=== PATIENT | male | born 1955 | race African-American/Black ===

== ENCOUNTER 2019-09-12 06:43 | Emergency (ER) | payer OTHER ==
[~2019-09-12] VITALS: Ht 185.4 cm; Wt 136.1 kg
[2019-09-12] MEDS ORDERED: ALBU90OI INH ×2 (07:35→07:55)
[2019-09-12] MEDS ORDERED: PRED10 PO (07:55)
[2019-09-12] MEDS ORDERED: GUAIFEN-CODEINE10 ML PO (07:55)
== END 2019-09-12 08:04 | disposition home or self-care (01) ==
LOC: ER 06:43
DX: J45.901 Unspecified asthma with (acute) exacerbation (principal)
CPT/HCPCS: 94640; 99283-25; J7512

== ENCOUNTER 2020-03-01 09:45 | Emergency (ER) | payer OTHER ==
[~2020-03-01] VITALS: Ht 185.4 cm; Wt 142.9 kg
[~2020-03-01 09:45] MED LIST: ALBU90OI INH; GUAIFEN-CODEINE10 ML PO; PRED10 PO
[2020-03-01] MEDS ORDERED: BUDESONIDE-FO10.2 G2 (10:02)
[2020-03-01] MEDS ORDERED: PRED20 PO (10:02)
[2020-03-01 10:32] LABS: BASOPHILS ABSOLUTE AUTO 0.08 K/mm3 (0.00-0.23); BASOPHILS PERCENT AUTO 1 % (0-2); EOSINOPHILS PERCENT AUTO 1 % (0-6); Hematocrit 42.8 % (37.0-53.0); Hemoglobin 13.5 g/dL (13.5-17.5); IMMATURE GRAN ABSOLUTE AUTO 0.09 K/mm3 (0.00-0.10); IMMATURE GRAN PERCENT AUTO 1 % (0-1); LYMPHOCYTES ABSOLUTE AUTO 5.68 K/mm3 (0.84-5.20); LYMPHOCYTES PERCENT AUTO 55 % (21-46); MONOCYTES ABSOLUTE AUTO 0.58 K/mm3 (0.16-1.47); MONOCYTES PERCENT AUTO 6 % (4-13); Mean Corpuscular HGB 27.5 pg (26.0-34.0); Mean Corpuscular HGB Conc 31.5 g/dL (31.5-36.5); Mean Corpuscular Volume 87 fL (80-100); NEUTROPHILS ABSOLUTE AUTO 3.81 K/mm3 (1.96-9.15); NEUTROPHILS PERCENT AUTO 37 % (41-73); NRBC ABSOLUTE 0.02 K/mm3 (0.00-0.02); NRBC Auto 0.2 /100 WBC (0.0-0.2); RDW Coefficient Variation 13.6 % (11.7-14.2); RDW Standard Deviation 43.4 fL (35.1-46.3); Red Blood Cell Count 4.91 M/mm3 (4.30-5.90); White Blood Cell Count 10.34 K/mm3 (4.00-11.30)
[2020-03-01 11:02] LABS: Alanine Aminotransfer (ALT/SGP 37 U/L (12-78); Albumin/Globulin Ratio 1.1 (0.8-1.8); Alk Phos 92 U/L (50-136); Anion Gap 8 mmol/L (6-16); Aspartate Aminotrans (AST/SGOT 14 U/L (12-37); Bilirubin, Total 0.3 mg/dL (0.1-1.0); Blood Urea Nitrogen 21 mg/dL (8-24); Bun/Creatinine Ratio 19.1 (12.0-20.0); CO2, Blood 22 mmol/L (21-32); Calcium, Blood 9.1 mg/dL (8.5-10.1); Chloride, Blood 110 mmol/L (98-108); Globulin, Blood 3.8 g/dL (2.2-4.0); Glomerular Filtration Rate >60 (60-); Glucose, Blood 108 mg/dL (70-99); Potassium, Blood 3.6 mmol/L (3.5-5.5); Sodium, Blood 140 mmol/L (136-145); Total Protein, Blood 7.8 g/dL (6.4-8.2); Troponin I <0.015 ng/mL (0.000-0.040)
[2020-03-01 11:11] LABS: Mean Platelet Volume 9.1 fL (9.1-12.4); Platelet Count 232 K/mm3 (150-400)
[2020-03-01] MEDS ORDERED: Prednisone20 MG PO (11:55)
== END 2020-03-01 12:04 | disposition home or self-care (01) ==
LOC: ER 09:45
PROVIDERS: Physician Assistant
DX: J45.901 Unspecified asthma with (acute) exacerbation (principal); Z79.52 Long term (current) use of systemic steroids; Z79.899 Other long term (current) drug therapy
CPT/HCPCS: 71045; 80053; 84484; 85025; 93005; 93010; 94644; 99285-25

== ENCOUNTER 2020-06-18 06:08 | Emergency (ER) | payer OTHER ==
[~2020-06-18] VITALS: Ht 188 cm; Wt 122.5 kg
[~2020-06-18 06:08] MED LIST changes: +BUDESONIDE-FO10.2 G2; +PRED20 PO; +Prednisone20 MG PO
[2020-06-18 06:49] LABS: BASOPHILS ABSOLUTE AUTO 0.06 K/mm3 (0.00-0.23); BASOPHILS PERCENT AUTO 1 % (0-2); EOSINOPHILS ABSOLUTE AUTO 0.15 K/mm3 (0.00-0.68); EOSINOPHILS PERCENT AUTO 2 % (0-6); Hematocrit 37.6 % (37.0-53.0); Hemoglobin 12.1 g/dL (13.5-17.5); IMMATURE GRAN ABSOLUTE AUTO 0.03 K/mm3 (0.00-0.10); IMMATURE GRAN PERCENT AUTO 0 % (0-1); LYMPHOCYTES PERCENT AUTO 47 % (21-46); MONOCYTES ABSOLUTE AUTO 0.46 K/mm3 (0.16-1.47); MONOCYTES PERCENT AUTO 7 % (4-13); Mean Corpuscular HGB 27.6 pg (26.0-34.0); Mean Corpuscular HGB Conc 32.2 g/dL (31.5-36.5); Mean Corpuscular Volume 86 fL (80-100); Mean Platelet Volume 8.6 fL (9.1-12.4); NEUTROPHILS ABSOLUTE AUTO 2.89 K/mm3 (1.96-9.15); NEUTROPHILS PERCENT AUTO 43 % (41-73); Platelet Count 290 K/mm3 (150-400); RDW Coefficient Variation 14.1 % (11.7-14.2); RDW Standard Deviation 44.6 fL (35.1-46.3); Red Blood Cell Count 4.38 M/mm3 (4.30-5.90); White Blood Cell Count 6.79 K/mm3 (4.00-11.30)
[2020-06-18 07:09] LABS: Alanine Aminotransfer (ALT/SGP 32 U/L (12-78); Albumin, Blood 3.7 g/dL (3.4-5.0); Alk Phos 84 U/L (50-136); Anion Gap 7 mmol/L (6-16); Aspartate Aminotrans (AST/SGOT 19 U/L (12-37); Bilirubin, Total 0.2 mg/dL (0.1-1.0); Blood Urea Nitrogen 16 mg/dL (8-24); Bun/Creatinine Ratio 14.2 (12.0-20.0); CO2, Blood 23 mmol/L (21-32); Calcium, Blood 9.2 mg/dL (8.5-10.1); Chloride, Blood 114 mmol/L (98-108); Creatinine, Blood 1.13 mg/dL (0.60-1.20); Globulin, Blood 3.6 g/dL (2.2-4.0); Glomerular Filtration Rate >60 (60-); Glucose, Blood 94 mg/dL (70-99); Sodium, Blood 144 mmol/L (136-145); Total Protein, Blood 7.3 g/dL (6.4-8.2)
[2020-06-18] MEDS ORDERED: Prednisone20 MG PO (07:25)
== END 2020-06-18 08:35 | disposition home or self-care (01) ==
LOC: ER 06:08
PROVIDERS: Emergency Medicine
DX: R51.9 Headache, unspecified (principal); R25.2 Cramp and spasm; R20.0 Anesthesia of skin; L72.3 Sebaceous cyst; Z79.51 Long term (current) use of inhaled steroids
CPT/HCPCS: 36415; 70450; 80053; 85025; 99284-25

== ENCOUNTER 2021-01-25 02:34 | Observation (INO) | payer OTHER ==
[~2021-01-25] VITALS: Ht 185.4 cm; Wt 137.9 kg
[2021-01-25] MEDS ORDERED: HYDCOR10 (03:00)
[2021-01-25] MEDS ORDERED: EUTHYROX50 MCG (03:00)
[2021-01-25 03:02] LABS: BASOPHILS ABSOLUTE AUTO 0.04 K/mm3 (0.00-0.23); BASOPHILS PERCENT AUTO 1 % (0-2); EOSINOPHILS ABSOLUTE AUTO 0.15 K/mm3 (0.00-0.68); EOSINOPHILS PERCENT AUTO 2 % (0-6); Hematocrit 39.3 % (37.0-53.0); Hemoglobin 12.1 g/dL (13.5-17.5); IMMATURE GRAN ABSOLUTE AUTO 0.01 K/mm3 (0.00-0.10); IMMATURE GRAN PERCENT AUTO 0 % (0-1); LYMPHOCYTES ABSOLUTE AUTO 3.82 K/mm3 (0.84-5.20); LYMPHOCYTES PERCENT AUTO 52 % (21-46); MONOCYTES PERCENT AUTO 7 % (4-13); Mean Corpuscular HGB Conc 30.8 g/dL (31.5-36.5); Mean Corpuscular Volume 84 fL (80-100); Mean Platelet Volume 8.9 fL (9.1-12.4); NEUTROPHILS ABSOLUTE AUTO 2.77 K/mm3 (1.96-9.15); NEUTROPHILS PERCENT AUTO 38 % (41-73); Platelet Count 306 K/mm3 (150-400); RDW Coefficient Variation 13.9 % (11.7-14.2); RDW Standard Deviation 42.8 fL (35.1-46.3); Red Blood Cell Count 4.66 M/mm3 (4.30-5.90); White Blood Cell Count 7.29 K/mm3 (4.00-11.30)
[2021-01-25 03:23] LABS: Anion Gap 4 mmol/L (6-16); Blood Urea Nitrogen 17 mg/dL (8-24); Bun/Creatinine Ratio 16.5 (12.0-20.0); CO2, Blood 28 mmol/L (21-32); Calcium, Blood 8.8 mg/dL (8.5-10.1); Chloride, Blood 111 mmol/L (98-108); Creatinine, Blood 1.03 mg/dL (0.60-1.20); Glomerular Filtration Rate >60 (60-); Glucose, Blood 116 mg/dL (70-99); Magnesium, Blood 2.3 mg/dL (1.6-2.4); Potassium, Blood 3.6 mmol/L (3.5-5.5); Sodium, Blood 143 mmol/L (136-145); Troponin I 0.112 ng/mL (0.000-0.040)
[2021-01-25 04:50] LABS: International Normalized Ratio 0.93; Prothrombin Time Results 10.1 Sec (9.7-11.5)
--- NOTE | 2021-01-25 07:47 | NUR ---
ASSUMPTION OF CARE PT TX TO ICU FROM ER VIA GURNEY, PT ABLE TO STAND AND TRANSFER TO ICU BED, A&OX4. DENIES CP OR SOB AT THIS TIME. VSS, NSR ON THE SENIOR DB2 SYSTEMS PROGRAMMER. PT WITH ONE 20GA IV RAC ON ADMIT, SECOND IV ESTABLISHED IN LAC UPON ARRIVAL. HEPARIN BOLUS GIVEN, HEPARIN GTT INITIATED WITH CHAR RAMOS RN WITNESS. URINAL AT BEDSIDE, CALL LIGHT IN REACH. PT ADVISED TO NOTIFY NURSE UPON ANY RETURN IN CP OR SOB. NO COMPLAINTS AT THIS TIME. REPORT GIVEN TO ONCOMING NURSE.
--- NOTE | 2021-01-25 08:40 | NUR ---
ASSESSMENT- PT AWAKE, ALERT, COOPERATIVE, DENIES COMPLAINTS EXCEPT WOULD LIKE NEXT LAB TEST SO HE COULD GO HOME. EXPLAINED PLAN OF CARE. NO DISTRESS, LUNGS CLEAR, NSR. PIV X 2 INTACT. HEPARIN AT 13 UNITS/KG/HR INFUSING. NO N/V
--- NOTE | 2021-01-25 09:15 | NUR ---
PT RETURNED FROM CT SCAN-C/O TIGHTNESS IN TEST, STATES FEELS LIKE AN ASTHMA EPISODE AND STATES WAS ANXIOUS WITH SCAN. RESP TREATMENT GIVEN WITH RESOLUTION OF EPISODE. VSS. NO WHEEZES. TALKING ON PHONE NOW, NO DISTRESS, RESPIRATIONS UNLABORED.
[2021-01-25 11:32] LABS: Creatine Kinase MB 3.9 ng/mL (0.0-3.6); Creatine Kinase MB Index 2.8 (0.0-4.0)
--- NOTE | 2021-01-25 12:17 | NUR ---
PT DENIES COMPLAINTS. TROPONIN REPEATED-INCREASING. NO OTHER EPISODES OF DISCOMFORT AFTER THE CHEST TIGHTNESS AFTER CT. DR. PORTER HERE-UPDATED. CARDIOLOGY CONSULT-CALLED. ASSESSMENT UNCHANGED
--- NOTE | 2021-01-25 15:21 | NUR ---
RHYTHM STABLE, VISITING WITH FAMILY. REVIEWED PLAN OF CARE. REPORT TO ALLEN ATKINS
--- NOTE | 2021-01-25 19:54 | NUR ---
REPORT GIVEN TO MI ATKINS.
[2021-01-25 20:18] LABS: Creatine Kinase MB 3.4 ng/mL (0.0-3.6); Creatine Kinase MB Index 2.7 (0.0-4.0); Troponin I 0.284 ng/mL (0.000-0.040)
[2021-01-26 05:10] LABS: Hematocrit 32.2 % (37.0-53.0); Hemoglobin 10.4 g/dL (13.5-17.5); Mean Corpuscular HGB 26.3 pg (26.0-34.0); Mean Corpuscular HGB Conc 32.3 g/dL (31.5-36.5); Mean Corpuscular Volume 82 fL (80-100); Mean Platelet Volume 8.9 fL (9.1-12.4); Platelet Count 268 K/mm3 (150-400); RDW Coefficient Variation 13.9 % (11.7-14.2); RDW Standard Deviation 41.1 fL (35.1-46.3); Red Blood Cell Count 3.95 M/mm3 (4.30-5.90); White Blood Cell Count 9.95 K/mm3 (4.00-11.30)
[2021-01-26 05:29] LABS: Albumin, Blood 3.1 g/dL (3.4-5.0); Anion Gap 5 mmol/L (6-16); Blood Urea Nitrogen 18 mg/dL (8-24); Bun/Creatinine Ratio 19.4 (12.0-20.0); CHOL/HDL RATIO 4.6; CO2, Blood 26 mmol/L (21-32); Calcium, Blood 8.6 mg/dL (8.5-10.1); Chloride, Blood 111 mmol/L (98-108); Cholesterol 217 mg/dL (50-200); Creatinine, Blood 0.93 mg/dL (0.60-1.20); Glomerular Filtration Rate >60 (60-); Glucose, Blood 108 mg/dL (70-99); HDL Cholesterol 47 mg/dL (>39); LDL/HDL RATIO 3.3; Low Density Lipoprotein Chol 153 mg/dL (0-110); Phosphorus, Blood 3.8 mg/dL (2.5-4.9); Potassium, Blood 3.3 mmol/L (3.5-5.5); Sodium, Blood 142 mmol/L (136-145); Triglycerides 83 mg/dL (30-160); Very Low Density Lipoprot Chol 16 mg/dL (6-32)
--- NOTE | 2021-01-26 06:01 | NUR ---
SUMMARY NO ACUTE CHANGES NOTED THROUGH THE NIGHT. PT HAS BEEN AWAKE & ANXIOUS TO GO HO HOME. HE CONTINUES TO DENY CP/PRESSURE. VSS, ON RA. HEPARIN GTT INFUSING PER EMAR. PT IS TOLERATING PO INTAKE, VOIDING WNL. PT IS UP TO THE BEDSIDE CHAIR FREQUENTLY. HE C/O THE BED BEING UNCOMFORTABLE. WCTM AT THIS TIME, REPORT WILL BE GIVEN TO DAY RN
--- NOTE | 2021-01-26 07:15 | NUR ---
Assumed care of pt at 0700. Bedside report received from Pari ATKINS. Pt A&O x 4. Answers questions. Follows commands. Verbalizes needs. Pleasant and cooperative with care. Independent in room. Denies chest pain or shortness of breath. SpO2 90% or greater RA. Heparin drip per orders. Bed in lowest position. Call light in reach. Pt denies need at this time.
--- NOTE | 2021-01-26 10:37 | NUR ---
Dr Meade in to see patient. States that pt is okay to go home from his standpoint. Heparin drip stopped per his orders. Pt has scheduled a stress test in [place], where he receives most of his medical care. Stress test is scheduled for next week. Although pt lives in [place], he is happy about receiving his health care in [place], stating "I get paid to go to [place]", as his travel expenses are covered. Dr Ashton in to see pt. Pt states highly satisfied with plan of care to add statin, BP meds, prednisone taper, and follow up as he has scheduled. Pt states he has previously been noncompliant with medication and "learned my lesson". Pt to discharge later today.
[2021-01-26] MEDS ORDERED: Prednisone10 MG PO (13:30)
[2021-01-26] MEDS ORDERED: LEVSOD100 PO (13:31)
[2021-01-26] MEDS ORDERED: ASPI81CH PO (13:31)
[2021-01-26] MEDS ORDERED: OMEP20ER PO (13:32)
[2021-01-26] MEDS ORDERED: METO25ER PO (13:32)
[2021-01-26] MEDS ORDERED: ATOR20 PO (13:33)
[2021-01-26] MEDS ORDERED: SYMBICORT 80-10.2 GM INH (13:35)
--- NOTE | 2021-01-26 14:04 | NUR ---
Patient discharged from unit at 1400. Walked out with his spouse. Understands he needs to see PCP in three days. Medications faxed to [facility] [address]. Education given to spouse and . IV access discontinued.
== END 2021-01-26 14:05 | disposition home or self-care (01) ==
LOC: ER 02:34 → ICUE 02:35 → ICUW 02:35 → ICUE 05:44
PROVIDERS: Emergency Medicine; Internal Medicine; ADMIT Internal Medicine
DX: J45.901 Unspecified asthma with (acute) exacerbation (principal); J96.01 Acute respiratory failure with hypoxia; I10 Essential (primary) hypertension; E03.9 Hypothyroidism, unspecified; E66.9 Obesity, unspecified; E78.5 Hyperlipidemia, unspecified; F32.9 Major depressive disorder, single episode, unspecified; Z87.891 Personal history of nicotine dependence; Z79.899 Other long term (current) drug therapy; Z20.822 Contact with and (suspected) exposure to COVID-19
CPT/HCPCS: 36415; 71045; 71260; 80048; 80061; 80069; 82550; 82553; 83735; 83880; 84484; 85025; 85027; 85610; 85730; 93005; 93010; 93306; 94640; 94644; 96365; 96366; 96374; 96376; 99285-25; A9270; G0378; J1644; J7512; Q9967

== ENCOUNTER 2021-03-07 15:10 | Emergency (ER) | payer OTHER ==
[~2021-03-07 15:10] MED LIST changes: +ASPI81CH PO; +ATOR40TA PO; +EUTHYROX125 MCG PO; +EUTHYROX50 MCG; +HYDCOR10; +METO25ER PO; +OMEP20ER PO; +Prednisone10 MG PO; +SYMBICORT 160-4.6 GM INH
== END 2021-03-07 15:48 | disposition left against medical advice (07) ==
LOC: ER 15:10
DX: Z53.21 Procedure and treatment not carried out due to patient leaving prior to being seen by health care provider (principal)

== ENCOUNTER 2021-03-08 07:10 | Emergency (ER) | payer OTHER ==
[~2021-03-08] VITALS: Ht 185.4 cm; Wt 141.5 kg
[2021-03-08 07:54] LABS: BASOPHILS ABSOLUTE AUTO 0.04 K/mm3 (0.00-0.23); BASOPHILS PERCENT AUTO 1 % (0-2); EOSINOPHILS PERCENT AUTO 4 % (0-6); Hematocrit 38.8 % (37.0-53.0); Hemoglobin 12.3 g/dL (13.5-17.5); IMMATURE GRAN ABSOLUTE AUTO 0.01 K/mm3 (0.00-0.10); IMMATURE GRAN PERCENT AUTO 0 % (0-1); LYMPHOCYTES ABSOLUTE AUTO 2.45 K/mm3 (0.84-5.20); LYMPHOCYTES PERCENT AUTO 53 % (21-46); MONOCYTES ABSOLUTE AUTO 0.46 K/mm3 (0.16-1.47); MONOCYTES PERCENT AUTO 10 % (4-13); Mean Corpuscular HGB 25.4 pg (26.0-34.0); Mean Corpuscular HGB Conc 31.7 g/dL (31.5-36.5); Mean Corpuscular Volume 80 fL (80-100); Mean Platelet Volume 8.7 fL (9.1-12.4); NEUTROPHILS ABSOLUTE AUTO 1.49 K/mm3 (1.96-9.15); NEUTROPHILS PERCENT AUTO 32 % (41-73); Platelet Count 317 K/mm3 (150-400); RDW Coefficient Variation 14.3 % (11.7-14.2); RDW Standard Deviation 41.3 fL (35.1-46.3); Red Blood Cell Count 4.85 M/mm3 (4.30-5.90); White Blood Cell Count 4.65 K/mm3 (4.00-11.30)
[2021-03-08 08:20] LABS: Alanine Aminotransfer (ALT/SGP 27 U/L (12-78); Albumin, Blood 3.3 g/dL (3.4-5.0); Albumin/Globulin Ratio 0.8 (0.8-1.8); Alk Phos 120 U/L (50-136); Anion Gap 6 mmol/L (6-16); Aspartate Aminotrans (AST/SGOT 16 U/L (12-37); Bilirubin, Total 0.2 mg/dL (0.1-1.0); Blood Urea Nitrogen 16 mg/dL (8-24); Bun/Creatinine Ratio 14.7 (12.0-20.0); CO2, Blood 23 mmol/L (21-32); Calcium, Blood 9.1 mg/dL (8.5-10.1); Chloride, Blood 111 mmol/L (98-108); Creatinine, Blood 1.09 mg/dL (0.60-1.20); Globulin, Blood 4.2 g/dL (2.2-4.0); Glomerular Filtration Rate >60 (60-); Glucose, Blood 106 mg/dL (70-99); Potassium, Blood 4.1 mmol/L (3.5-5.5); Sodium, Blood 140 mmol/L (136-145); Total Protein, Blood 7.5 g/dL (6.4-8.2); Troponin I 0.193 ng/mL (0.000-0.040)
== END 2021-03-08 09:20 | disposition home or self-care (01) ==
LOC: ER 07:10
PROVIDERS: Emergency Medicine
DX: R79.89 Other specified abnormal findings of blood chemistry (principal); I10 Essential (primary) hypertension; E78.5 Hyperlipidemia, unspecified; Z87.891 Personal history of nicotine dependence
CPT/HCPCS: 36415; 71045; 80053; 84484; 85025; 93005; 93010; 99283-25

== ENCOUNTER 2021-03-17 09:57 | Inpatient (IN) | payer OTHER, BC ==
[~2021-03-17] VITALS: Ht 185.4 cm; Wt 146.6 kg
[2021-03-17 10:39] LABS: BASOPHILS ABSOLUTE AUTO 0.04 K/mm3 (0.00-0.23); BASOPHILS PERCENT AUTO 0 % (0-2); EOSINOPHILS ABSOLUTE AUTO 0.01 K/mm3 (0.00-0.68); EOSINOPHILS PERCENT AUTO 0 % (0-6); Hematocrit 37.5 % (37.0-53.0); IMMATURE GRAN ABSOLUTE AUTO 0.05 K/mm3 (0.00-0.10); IMMATURE GRAN PERCENT AUTO 1 % (0-1); LYMPHOCYTES PERCENT AUTO 22 % (21-46); MONOCYTES ABSOLUTE AUTO 0.43 K/mm3 (0.16-1.47); MONOCYTES PERCENT AUTO 5 % (4-13); Mean Corpuscular HGB 25.2 pg (26.0-34.0); Mean Corpuscular Volume 79 fL (80-100); Mean Platelet Volume 9.1 fL (9.1-12.4); NEUTROPHILS ABSOLUTE AUTO 6.83 K/mm3 (1.96-9.15); NEUTROPHILS PERCENT AUTO 72 % (41-73); Platelet Count 333 K/mm3 (150-400); RDW Coefficient Variation 14.6 % (11.7-14.2); Red Blood Cell Count 4.77 M/mm3 (4.30-5.90); White Blood Cell Count 9.46 K/mm3 (4.00-11.30)
[2021-03-17 11:06] LABS: Alanine Aminotransfer (ALT/SGP 42 U/L (12-78); Albumin, Blood 3.5 g/dL (3.4-5.0); Albumin/Globulin Ratio 0.9 (0.8-1.8); Alk Phos 117 U/L (50-136); Anion Gap 7 mmol/L (6-16); Aspartate Aminotrans (AST/SGOT 20 U/L (12-37); Bilirubin, Total 0.1 mg/dL (0.1-1.0); Blood Urea Nitrogen 25 mg/dL (8-24); Bun/Creatinine Ratio 25.4 (12.0-20.0); CO2, Blood 23 mmol/L (21-32); Calcium, Blood 8.8 mg/dL (8.5-10.1); Chloride, Blood 111 mmol/L (98-108); Creatinine, Blood 0.99 mg/dL (0.60-1.20); Globulin, Blood 4.1 g/dL (2.2-4.0); Glomerular Filtration Rate >60 (60-); Glucose, Blood 114 mg/dL (70-99); Potassium, Blood 4.3 mmol/L (3.5-5.5); Sodium, Blood 141 mmol/L (136-145); Total Protein, Blood 7.6 g/dL (6.4-8.2)
[2021-03-17 11:50] LABS: Troponin I 0.591 ng/mL (0.000-0.040)
[2021-03-17 13:06] LABS: Creatine Kinase MB 6.4 ng/mL (0.0-3.6); Creatine Kinase MB Index 3.9 (0.0-4.0)
[2021-03-17 14:10] LABS: SARS-Cov-2 (COVID-19) PCR, MMC NEGATIVE (NEGATIVE)
[2021-03-17] MEDS ORDERED: FINA5 PO (16:25)
[2021-03-17 17:24] LABS: Creatine Kinase MB 8.4 ng/mL (0.0-3.6)
--- NOTE | 2021-03-17 18:35 | NUR ---
SHIFT SUMMARY PT ADMITTED FROM THE ED FOR CHEST/EPIGASTRIC PAIN THAT COMES AND GOES. PT RECENTLY IN THE HOSPITAL FOR SIMILAR ISSUE AND HAD STRESS TEST SCHEDULED IN TWO WEEKS. CRITICAL HIGH TROPONIN CALLED FROM LAB AT 0.814. VALUE REPORTED TO PHYSICIAN WHO PUT IN ORDERS. PT NOT HAVING ANY CURRENT SYMPTOMS. VSS. NORMAL SINUS ON TELE. WILL REPORT TO CANDY ATKINS.
[2021-03-17 23:33] LABS: Creatine Kinase MB Index 4.7 (0.0-4.0)
--- NOTE | 2021-03-18 05:08 | NUR ---
SANDAL PARTS ASSEMBLER SUMMARY PT AAOX4 AND INDEPENDENT IN ROOM. VERY PLEASANT. HAD CT PE STUDY AT START OF SHIFT WHICH WAS NEG PER REPORT. PT HAS DENIED CP TONIGHT AND ONLY REPORTS THAT "EVERY 4 OR 5 HOURS I GET A BIT OF A BURNING FEELING IN MY CHEST THAT SOMETIMES GOES UP MY THROAT AND LASTS FOR A FEW MINUTES". TROPONIN TONIGHT ELEVATED JUST A BIT FROM PREVIOUS VALUE AT 0.978, PREVIOUS 0.814. PT HAS BEEN SEEN BY CARDIOLOGY AND WILL HAVE A POSSIBLE ANGIO LATER TODAY PER PT. VSS, WILL CONTINUE TO MONITOR.
[2021-03-18 05:50] LABS: BASOPHILS ABSOLUTE AUTO 0.04 K/mm3 (0.00-0.23); BASOPHILS PERCENT AUTO 1 % (0-2); EOSINOPHILS PERCENT AUTO 2 % (0-6); Hematocrit 36.2 % (37.0-53.0); Hemoglobin 11.1 g/dL (13.5-17.5); IMMATURE GRAN ABSOLUTE AUTO 0.02 K/mm3 (0.00-0.10); IMMATURE GRAN PERCENT AUTO 0 % (0-1); LYMPHOCYTES ABSOLUTE AUTO 2.58 K/mm3 (0.84-5.20); LYMPHOCYTES PERCENT AUTO 44 % (21-46); MONOCYTES ABSOLUTE AUTO 0.42 K/mm3 (0.16-1.47); MONOCYTES PERCENT AUTO 7 % (4-13); Mean Corpuscular HGB 24.8 pg (26.0-34.0); Mean Corpuscular HGB Conc 30.7 g/dL (31.5-36.5); Mean Corpuscular Volume 81 fL (80-100); Mean Platelet Volume 8.9 fL (9.1-12.4); NEUTROPHILS ABSOLUTE AUTO 2.76 K/mm3 (1.96-9.15); NEUTROPHILS PERCENT AUTO 47 % (41-73); Platelet Count 284 K/mm3 (150-400); RDW Coefficient Variation 14.8 % (11.7-14.2); RDW Standard Deviation 43.6 fL (35.1-46.3); Red Blood Cell Count 4.48 M/mm3 (4.30-5.90); White Blood Cell Count 5.92 K/mm3 (4.00-11.30)
[2021-03-18 06:32] LABS: Alanine Aminotransfer (ALT/SGP 40 U/L (12-78); Albumin/Globulin Ratio 0.8 (0.8-1.8); Alk Phos 103 U/L (50-136); Anion Gap 5 mmol/L (6-16); Aspartate Aminotrans (AST/SGOT 22 U/L (12-37); Bilirubin, Total 0.1 mg/dL (0.1-1.0); Blood Urea Nitrogen 25 mg/dL (8-24); Bun/Creatinine Ratio 21.9 (12.0-20.0); CO2, Blood 26 mmol/L (21-32); Calcium, Blood 8.6 mg/dL (8.5-10.1); Chloride, Blood 113 mmol/L (98-108); Creatinine, Blood 1.14 mg/dL (0.60-1.20); Globulin, Blood 3.6 g/dL (2.2-4.0); Glomerular Filtration Rate >60 (60-); Glucose, Blood 90 mg/dL (70-99); Magnesium, Blood 2.5 mg/dL (1.6-2.4); Sodium, Blood 144 mmol/L (136-145); Total Protein, Blood 6.6 g/dL (6.4-8.2)
[2021-03-18 11:22] LABS: International Normalized Ratio 0.96; Prothrombin Time Results 10.4 Sec (9.7-11.5)
--- NOTE | 2021-03-18 13:30 | NUR ---
PT TRANSFER PT TRANSPORTED FOR ANGIO @ APPROX 1230 VIA BED. REPORT GIVEN TO PCU NURSE, JOVAN SUMMERS, WHO WILL BE TAKING OVER PT CARE AFTER PROCEDURE. ALL BELONGINGS GATHERED AND TO BE TAKEN TO PCU.
--- NOTE | 2021-03-18 18:36 | NUR ---
SHIFT SUMMARY PT UNDERWENT AN ANGIOGRAM TODAY. HE WAS ADMITTED FOR CP/EPIGASTRIC PAIN AND ELEVATED TROPONIN LEVELS. R RADIAL SITE WITH BAND IN PLACE. STARTING TO DEFLATE BAND SLOWLY. 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 HE WILL BE TRANSFERRED FOR THESE PROCEDURES. THE PT IS CURRENTLY ON A HEPARIN DRIP WHICH IS CONTROLLED BY PHARMACY. A/O X4; PLEASANT AND COOPERATIVE WITH CARE. VSS. RESTING COMFORTABLY IN BED WITH HIS CALL LIGHT IN REACH.
--- NOTE | 2021-03-18 23:25 | NUR ---
ASSUMED CARE ASSUMED CARE OF PT AT 1900. PT IS A/OX4. INDEPENDENT. HEART SOUNDS REGULAR, LUGN SOUNDS CLEAR. TR BAND DEFLATING STARTED DURING DAYSHI. THIS NURSE DEFLATED BAND FROM , THERE WAS 12ML OF AIR IN IT, SITE IS FREE OF BLEEDING OR SWELLING. PT DENIES PAIN. CALL LIGHT IN REACH, BED IN LOWEST POSITON.
[2021-03-19 00:45] LABS: Anion Gap 5 mmol/L (6-16); Blood Urea Nitrogen 21 mg/dL (8-24); Bun/Creatinine Ratio 20.8 (12.0-20.0); CO2, Blood 25 mmol/L (21-32); CPK Creatine Kinase 94 U/L (39-308); Calcium, Blood 8.6 mg/dL (8.5-10.1); Chloride, Blood 112 mmol/L (98-108); Creatine Kinase MB 2.7 ng/mL (0.0-3.6); Creatine Kinase MB Index 2.9 (0.0-4.0); Creatinine, Blood 1.01 mg/dL (0.60-1.20); Glomerular Filtration Rate >60 (60-); Glucose, Blood 96 mg/dL (70-99); Potassium, Blood 3.8 mmol/L (3.5-5.5); Sodium, Blood 142 mmol/L (136-145)
--- NOTE | 2021-03-19 06:39 | NUR ---
SHIFT SUMMARY NO ACUTE CHANGES DURING THE NIGHT. PERIPHERAL SITE PAINLESS AND FREE OF SWELLING. PT USED URINAL T/O THE NIGHT. PT WAS ABLE TO GET A COUPLE OF HOURS OF SLEEP DURING THE NIGHT. CALL LIGHT IN REACH, BED IN LOWEST POSITON.
[2021-03-19] MEDS ORDERED: CLOP75 PO (12:26)
[2021-03-19] MEDS ORDERED: LISI5 PO (12:27)
--- NOTE | 2021-03-19 13:06 | NUR ---
DISCHARGE PT WAS DISCHARGED THIS AFTERNOON AT APPROXIMATELY 1300. PT IS IN NEED OF CABG BUT DR. BENTON FROM CARDIOLOGY FELT THAT THE PT WAS STABLE ENOUGH TO START THE PROCESS FOR THE CABG OUTPATIENT, WHICH IS WHAT THE PT WANTED WELL. PT WAS INSTRUCTED TO GO TO [facility] SUNDAY MORNING TO GET THE DISC AND REFERRAL FOR THE CABG. HEPARIN WAS STOPPED AND PT WAS GIVEN LOADING DOSE OF PLAVIX. PT WAS DISCHARGED AND ESCORTED OFF THE FLOOR BY EMILY DOSHI. PT'S VS STABLE AT TIME OF DISCHARGE, PT ON RA AND DENIES CP AND SOB. PT WAS INDEPENDENT IN THE ROOM.
== END 2021-03-19 13:06 | disposition home or self-care (01) | DRG 281 ==
LOC: ER 09:57 → MEDS 12:26 → PCU 12:26 → MEDS 15:04 → PCU 03-18 12:32
PROVIDERS: Emergency Medicine; Internal Medicine; Internal Medicine Cardiovascular Disease; Nurse Practitioner Acute Care; Physician Assistant; ADMIT Internal Medicine
PROC: 4A023N7 Measurement of Cardiac Sampling and Pressure, Left Heart, Percutaneous Approach (ICD-10-PCS; principal; 2021-03-18)
PROC: B2111ZZ Fluoroscopy of Multiple Coronary Arteries using Low Osmolar Contrast (ICD-10-PCS; 2021-03-18)
DX: I21.4 Non-ST elevation (NSTEMI) myocardial infarction (principal); Z68.41 Body mass index [BMI] 40.0-44.9, adult; Z20.822 Contact with and (suspected) exposure to COVID-19; I77.1 Stricture of artery; I10 Essential (primary) hypertension; E78.5 Hyperlipidemia, unspecified; I25.10 Atherosclerotic heart disease of native coronary artery without angina pectoris; K21.9 Gastro-esophageal reflux disease without esophagitis; I77.819 Aortic ectasia, unspecified site; E03.9 Hypothyroidism, unspecified; J45.909 Unspecified asthma, uncomplicated; E66.9 Obesity, unspecified; Z79.899 Other long term (current) drug therapy; Z79.82 Long term (current) use of aspirin; Z79.52 Long term (current) use of systemic steroids; Z79.51 Long term (current) use of inhaled steroids
CPT/HCPCS: 36415; 71046; 71260; 80048; 80053; 82550; 82553; 83735; 84484; 85025; 85379; 85610; 85651; 85730; 86140; 93005; 93010; 93308; 93321; 93454; 94640; 94760; 99152; 99153; 99285-25; A9270; C1769; C1894; J1644; J2250; J3010; J7030; J7050; Q9967; U0004

== ENCOUNTER 2021-06-13 06:53 | Day surgery (SDC) | payer OTHER, BC ==
[~2021-06-13] VITALS: Ht 185.4 cm; Wt 125.4 kg
[~2021-06-13 06:53] MED LIST changes: +CLOP75 PO; +FINA5 PO; +LISI5 PO
--- NOTE | 2021-06-13 11:44 | NUR ---
PT BROUGHT BACK TO RECOVERY ROOM POST PROCEDURE, RIGHT GROIN SITE SOFT NON TENDER WITH SCANT OOZING NOTED UNDERNEATH DRESSING. PT TOLERATES EATING AND DRINKING WITH NO DIFFICULTIES. PRESENT AT BEDSIDE. PENDING ADMISSION TO PCU. NO DISTRESS AT THIS TIME. VSS. CALL LIGHT IN REACH.
--- NOTE | 2021-06-13 13:45 | NUR ---
Dr. Seay in to see pt. Smal grion site hematoma noted. Manual pressure held for 15 min by this nurse. site cdi-no hematoma noted. Fem stop with 40mmHg pressure. Distal pulses remain unchanged at Right and Left DP +1-+2.
--- NOTE | 2021-06-13 14:22 | NUR ---
DR. CROWE IN TO SEE PT. FEM STOP RE-ADJUSTED.
--- NOTE | 2021-06-13 19:29 | NUR ---
ASSUMED CARE OF PATIENT AT APPROX 1440; PT TO ROOM WITH LEFT GROIN SITE WITH FEMSTOP IN PLACE. FEMSTOP REMOVED AT 1630 PER ORDERS, AND SITE RECOVERED BY 1830 PT UP AND WALKING TO BATHROOM WITH NO BLEEDING, BRUISING OR HEMATOMA NOTED. PT A&Ox4; CALM AND COOPERATIVE WITH CARE. PT REPORTING PAIN TO LOWER BACK AND HIPS WHILE LYING FLAT, DENIES ONCE UP AND BACK FROM BATHROOM. PT DENIES CHEST PAIN, SOB, NAUSEA AND DIZZINESS. VSS. NO OTHER ACUTE CHANGES NOTED DURING SHIFT. REPORT GIVEN TO ONCOMING RN.
[2021-06-14 06:26] LABS: BASOPHILS ABSOLUTE AUTO 0.03 K/mm3 (0.00-0.23); BASOPHILS PERCENT AUTO 1 % (0-2); EOSINOPHILS ABSOLUTE AUTO 0.12 K/mm3 (0.00-0.68); EOSINOPHILS PERCENT AUTO 2 % (0-6); Hematocrit 28.9 % (37.0-53.0); IMMATURE GRAN ABSOLUTE AUTO 0.01 K/mm3 (0.00-0.10); IMMATURE GRAN PERCENT AUTO 0 % (0-1); LYMPHOCYTES ABSOLUTE AUTO 1.77 K/mm3 (0.84-5.20); LYMPHOCYTES PERCENT AUTO 34 % (21-46); MONOCYTES ABSOLUTE AUTO 0.36 K/mm3 (0.16-1.47); MONOCYTES PERCENT AUTO 7 % (4-13); Mean Corpuscular HGB 23.5 pg (26.0-34.0); Mean Corpuscular HGB Conc 31.1 g/dL (31.5-36.5); Mean Corpuscular Volume 76 fL (80-100); Mean Platelet Volume 9.1 fL (9.1-12.4); NEUTROPHILS ABSOLUTE AUTO 2.91 K/mm3 (1.96-9.15); NEUTROPHILS PERCENT AUTO 56 % (41-73); Platelet Count 286 K/mm3 (150-400); RDW Coefficient Variation 16.4 % (11.7-14.2); RDW Standard Deviation 44.9 fL (35.1-46.3); Red Blood Cell Count 3.83 M/mm3 (4.30-5.90)
--- NOTE | 2021-06-14 06:33 | NUR ---
SHIFT SUMMARY ASSUMED CARE OF PT AT 1900. PT IS A/OX4. HEART SOUNDS REGULAR. TELE SHOWS SINUS. LUNG SOUNDS CLEAR. PT L FEMORAL SITE HAS MINIMAL PAIN AND MINIMAL DRAINAGE. PT USED THE URINAL T/O THE NIGHT. PT HAS NO NEW COMPLAINTS. CALL LIGHT IN REACH, BED IN LOWEST POSITION.
[2021-06-14 06:34] LABS: Anion Gap 4 mmol/L (6-16); Blood Urea Nitrogen 12 mg/dL (8-24); CO2, Blood 26 mmol/L (21-32); Calcium, Blood 8.1 mg/dL (8.5-10.1); Chloride, Blood 115 mmol/L (98-108); Creatinine, Blood 0.86 mg/dL (0.60-1.20); Glomerular Filtration Rate >60 (60-); Glucose, Blood 94 mg/dL (70-99); Potassium, Blood 3.1 mmol/L (3.5-5.5); Sodium, Blood 145 mmol/L (136-145)
--- NOTE | 2021-06-14 07:44 | NUR ---
AM NOTE THIS NURSE ASSESSED LEFT FEMORAL ACCESS SITE WITH ANDREA GARCIA RN AND CHANDLER RN; PER REPORT SITE HAS REMAINED UNCHANGED FROM PREVIOUS ASSESSMENT. CHG DRESSING OVER SITE WITH NO APPARENT BLEEDING, REDDNESS, OR SWELLING. WILL CONTINUE TO MONITOR. PT ALERT AND ORIENTED X 4. CALL LIGHT IN REACH, BED IN LOW.
[2021-06-14] MEDS ORDERED: POTCHL20ER PO (09:30)
[2021-06-14] MEDS ORDERED: NITR.4SL SL (09:31)
--- NOTE | 2021-06-14 13:09 | NUR ---
DISCHARGE NOTE PT IS ALERT AND ORIENTED X 4. LEFT FEMORAL GRION SITE HAS REMAINED UNCHANGED FROM PREVIOUS ASSESSMENT. THIS NURSE GAVE PT DISCHARGE INSTRUCTIONS INCLUDING FEMORAL SITE CARE, NEW MEDICATION LIST/INSTRUCTIONS, FOLLOW UP APPOINTMENTS. STENT CARD WAS SENT WITH PT WELL. VITAL SIGNS REMAINED STABLE, PT WAS STABLE UPON DISCHARGE. PT LEFT ROOM AT 1047 VIA WHEELCHAIR AND WAS ESCORTED BY ANDREA GARCIA RN. ALL OF PATIENT BELONGINGS WERE SENT WITH PATIENT.
== END 2021-06-14 10:47 | disposition home or self-care (01) ==
LOC: MHTC 06:53 → PCU 14:23 → MHTC 06-14 10:47
PROVIDERS: Internal Medicine Cardiovascular Disease
DX: I25.110 Atherosclerotic heart disease of native coronary artery with unstable angina pectoris (principal); I10 Essential (primary) hypertension; J45.909 Unspecified asthma, uncomplicated; E66.9 Obesity, unspecified; Z68.35 Body mass index [BMI] 35.0-35.9, adult
CPT/HCPCS: 36415; 76937; 80048; 85025; 85347; 92978; 92979; 93005; 93010; 93571; 94640; 94664; 94760; 99152; 99153; A9270; C1725; C1753; C1760; C1769; C1874; C1887; C1894; C9600; C9601; C9604; C9605; J0461; J1644; J2250; J2370; J3010; J3480; J7030; J7040; J7050; Q9967

== ENCOUNTER 2022-09-01 18:00 | Emergency (ER) | payer OTHER ==
[~2022-09-01] VITALS: Ht 185.4 cm; Wt 113.4 kg
[~2022-09-01 18:00] MED LIST changes: +DICY20 PO; +NITR.4SL SL; +ONDA4ODT MM; +POTCHL20ER PO; +Percocet 5-3251 EACH PO
[2022-09-02] MEDS ORDERED: EUTHYROX50 MCG PO ×2 (15:44→15:45)
== END 2022-09-01 19:31 | disposition left against medical advice (07) ==
LOC: ER 18:00
DX: Z53.21 Procedure and treatment not carried out due to patient leaving prior to being seen by health care provider (principal)

== ENCOUNTER 2022-09-02 10:06 | Inpatient (IN) | payer OTHER ==
[~2022-09-02] VITALS: Ht 185.4 cm; Wt 104.2 kg
[2022-09-02 10:59] LABS: BASOPHILS ABSOLUTE AUTO 0.13 K/mm3 (0.00-0.23); BASOPHILS PERCENT AUTO 1 % (0-2); EOSINOPHILS ABSOLUTE AUTO 0.16 K/mm3 (0.00-0.68); EOSINOPHILS PERCENT AUTO 1 % (0-6); Hematocrit 40.8 % (37.0-53.0); IMMATURE GRAN ABSOLUTE AUTO 0.24 K/mm3 (0.00-0.10); IMMATURE GRAN PERCENT AUTO 1 % (0-1); LYMPHOCYTES PERCENT AUTO 10 % (21-46); MONOCYTES ABSOLUTE AUTO 2.09 K/mm3 (0.16-1.47); MONOCYTES PERCENT AUTO 11 % (4-13); Mean Corpuscular HGB 26.7 pg (26.0-34.0); Mean Corpuscular HGB Conc 31.9 g/dL (31.5-36.5); Mean Corpuscular Volume 84 fL (80-100); Mean Platelet Volume 8.5 fL (9.1-12.4); NEUTROPHILS ABSOLUTE AUTO 14.82 K/mm3 (1.96-9.15); NEUTROPHILS PERCENT AUTO 76 % (41-73); Platelet Count 481 K/mm3 (150-400); RDW Coefficient Variation 16.9 % (11.7-14.2); RDW Standard Deviation 51.5 fL (35.1-46.3); Red Blood Cell Count 4.87 M/mm3 (4.30-5.90); White Blood Cell Count 19.44 K/mm3 (4.00-11.30)
[2022-09-02 11:17] LABS: Albumin, Blood 2.2 g/dL (3.4-5.0); Albumin/Globulin Ratio 0.4 (0.8-1.8); Bilirubin, Total 0.3 mg/dL (0.1-1.0); Bun/Creatinine Ratio 25.5 (12.0-20.0); Calcium, Blood 9.4 mg/dL (8.5-10.1); Creatinine, Blood 1.06 mg/dL (0.60-1.20); Globulin, Blood 5.3 g/dL (2.2-4.0); Potassium, Blood 3.8 mmol/L (3.5-5.5); Total Protein, Blood 7.5 g/dL (6.4-8.2)
[2022-09-02 12:30] LABS: Source, Urine Clean Catch
[2022-09-02 12:33] LABS: Appearance, Urine Clear (Clear); Blood, Urine 2+ (Neg); Color, Urine Yellow (P-Yellow); Glucose Qualitative, Urine Neg (Neg); Ketones, Urine 1+ (Neg); Leukocyte Esterase, Urine Neg (Neg); Nitrite, Urine Neg (Neg); Protein, Urine 2+ (Neg); Specific Gravity, Urine 1.025 (1.003-1.022); Urobilinogen, Urine 1+ (Normal)
[2022-09-02 12:35] LABS: Bilirubin, Urine 1+ (Neg)
[2022-09-02 12:44] LABS: Bacteria Mod /hpf; Mucus Mod (0-Heavy); Squamous Epithelial Cells Few /hpf (Few)
[2022-09-02 15:05] LABS: Anti-Xa UFH, PHA Monitoring <0.10 IU/mL; International Normalized Ratio 1.15
[2022-09-02] MEDS ORDERED: EUTHYROX50 MCG PO ×2 (15:44→15:45)
--- NOTE | 2022-09-02 17:28 | NUR ---
SHIFT SUMMARY PT ADMITTED TO THE MEDICAL FLOOR THIS SHIFT, REPORT RECEIVED FROM MILLY CEDILLO. ADMISSION INFORMATION WAS COMPLETED. HE IS AOX4, INDEPENDENT IN THE ROOM. WILL REPORT TO ONCOMING NURSE.
--- NOTE | 2022-09-03 04:32 | NUR ---
SHIFT SUMMARY PATIENT HAD NO ACUTE CHANGES OBSERED. AXOX 4 AND INDEPENDENT IN ROOM. ON ROOM AIR. PIV AND MEDIPORT REMAINS INTACT. NS INFUSING AT 100 mL/HR. IV ABS INFUSED. VSS/AFEBRILE. DENIES CHEST PAIN, SOB, AND N/V. SLEPT MOST OF SHIFT. CALL LIGHT IN REACH. BED IN LOWEST POSITION. WILL CONTINUE TO MONITOR UNTIL DAY SHIFT NURSE ASSUMES CARE.
[2022-09-03 06:01] LABS: BASOPHILS ABSOLUTE AUTO 0.12 K/mm3 (0.00-0.23); BASOPHILS PERCENT AUTO 1 % (0-2); EOSINOPHILS ABSOLUTE AUTO 0.18 K/mm3 (0.00-0.68); EOSINOPHILS PERCENT AUTO 1 % (0-6); Hematocrit 36.6 % (37.0-53.0); Hemoglobin 11.4 g/dL (13.5-17.5); IMMATURE GRAN ABSOLUTE AUTO 0.15 K/mm3 (0.00-0.10); IMMATURE GRAN PERCENT AUTO 1 % (0-1); LYMPHOCYTES ABSOLUTE AUTO 2.11 K/mm3 (0.84-5.20); LYMPHOCYTES PERCENT AUTO 12 % (21-46); MONOCYTES ABSOLUTE AUTO 1.72 K/mm3 (0.16-1.47); MONOCYTES PERCENT AUTO 10 % (4-13); Mean Corpuscular HGB 26.3 pg (26.0-34.0); Mean Corpuscular HGB Conc 31.1 g/dL (31.5-36.5); Mean Corpuscular Volume 85 fL (80-100); Mean Platelet Volume 8.8 fL (9.1-12.4); NEUTROPHILS ABSOLUTE AUTO 12.69 K/mm3 (1.96-9.15); NEUTROPHILS PERCENT AUTO 75 % (41-73); Platelet Count 453 K/mm3 (150-400); RDW Coefficient Variation 17.2 % (11.7-14.2); RDW Standard Deviation 53.3 fL (35.1-46.3); Red Blood Cell Count 4.33 M/mm3 (4.30-5.90); White Blood Cell Count 16.97 K/mm3 (4.00-11.30)
[2022-09-03 06:21] LABS: Albumin, Blood 1.9 g/dL (3.4-5.0); Albumin/Globulin Ratio 0.4 (0.8-1.8); Bilirubin, Total 0.5 mg/dL (0.1-1.0); Calcium, Blood 8.5 mg/dL (8.5-10.1); Creatinine, Blood 1.22 mg/dL (0.60-1.20); Globulin, Blood 4.6 g/dL (2.2-4.0); Total Protein, Blood 6.5 g/dL (6.4-8.2)
--- NOTE | 2022-09-03 19:20 | NUR ---
SHIFT SUMMARY PT A&OX4, VSS/RA, JER PO, VOIDING WELL/URINAL, AMB INDEPENDENT/BSC, MEDIPORT/IV SL, ABX PER EMAR. REPORT TO JENNIFER ATKINS.
--- NOTE | 2022-09-04 04:03 | NUR ---
SHIFT MOSTLY UNREMARKABLE. MEDPORT IN PLACE AND BEING INFUSED WITH NS AT KVO RATE OF 15 MLS/HR. ACQUIRED ORDER FOR MEDPORT PROTOCOL HEPARIN. PATIENT EXPERIENCED BRIEF NAUSEA EARLY IN MORNING THAT WAS ADEQUATELY TREATED WITH IV HEPARIN AND OTHERWISE DENIED ANY PAIN OR DISCOMFORT. CALL LIGHT LEFT WITHIN REACH .
[2022-09-04 06:01] LABS: Hematocrit 34.8 % (37.0-53.0); Hemoglobin 10.6 g/dL (13.5-17.5); Mean Corpuscular HGB 25.9 pg (26.0-34.0); Mean Corpuscular HGB Conc 30.5 g/dL (31.5-36.5); Mean Corpuscular Volume 85 fL (80-100); Platelet Count 430 K/mm3 (150-400); RDW Coefficient Variation 17.2 % (11.7-14.2); RDW Standard Deviation 52.9 fL (35.1-46.3); Red Blood Cell Count 4.09 M/mm3 (4.30-5.90); White Blood Cell Count 13.55 K/mm3 (4.00-11.30)
[2022-09-04 06:34] LABS: Albumin, Blood 1.8 g/dL (3.4-5.0); Albumin/Globulin Ratio 0.4 (0.8-1.8); Bilirubin, Total 0.5 mg/dL (0.1-1.0); Bun/Creatinine Ratio 12.9 (12.0-20.0); Calcium, Blood 8.4 mg/dL (8.5-10.1); Creatinine, Blood 1.32 mg/dL (0.60-1.20); Globulin, Blood 4.5 g/dL (2.2-4.0); Potassium, Blood 3.7 mmol/L (3.5-5.5); Total Protein, Blood 6.3 g/dL (6.4-8.2)
[2022-09-04] MEDS ORDERED: ACET325 PO (12:20)
[2022-09-04] MEDS ORDERED: BENZ100A PO (12:23)
[2022-09-04] MEDS ORDERED: LEVFLO500 PO (12:25)
[2022-09-04] MEDS ORDERED: VISBIOME 112.51 EACH PO (12:25)
[2022-09-04] MEDS ORDERED: XARELTO20 MG PO ×2 (12:27→12:28)
[2022-09-04] MEDS ORDERED: PROM25 PO (12:32)
--- NOTE | 2022-09-04 17:41 | NUR ---
DISCHARGE-PT LEFT THE FLOOR AT 1735 IN ACCOMPANIED BY THIS RN AND HIS . PT'S HAD ALREADY PICKED UP XARELTO 15MG BID-RN VERIFIED. PT STABLE. PT TOOK ALL BELONINGS. RN FAXED 20MG XARELTO TO [facility]. ALL OTHER MEDS FAXED TO [facility].
== END 2022-09-04 17:34 | disposition home or self-care (01) | DRG 175 ==
LOC: ER 10:06 → MEDS 13:29
PROVIDERS: Family Medicine; ADMIT Internal Medicine
DX: I26.99 Other pulmonary embolism without acute cor pulmonale (principal); J18.9 Pneumonia, unspecified organism; K52.1 Toxic gastroenteritis and colitis; D84.89 Other immunodeficiencies; Z28.21 Immunization not carried out because of patient refusal; J45.909 Unspecified asthma, uncomplicated; K21.9 Gastro-esophageal reflux disease without esophagitis; E03.9 Hypothyroidism, unspecified; E78.5 Hyperlipidemia, unspecified; I10 Essential (primary) hypertension; I25.10 Atherosclerotic heart disease of native coronary artery without angina pectoris; R74.01 Elevation of levels of liver transaminase levels; N40.0 Benign prostatic hyperplasia without lower urinary tract symptoms; T36.8X5A Adverse effect of other systemic antibiotics, initial encounter; Z96.643 Presence of artificial hip joint, bilateral; Z90.49 Acquired absence of other specified parts of digestive tract; Z98.890 Other specified postprocedural states; Z87.891 Personal history of nicotine dependence; Z85.46 Personal history of malignant neoplasm of prostate; Z79.02 Long term (current) use of antithrombotics/antiplatelets; Z79.82 Long term (current) use of aspirin; Z79.899 Other long term (current) drug therapy
CPT/HCPCS: 36415; 71046; 71260; 80053; 81001; 83605; 83880; 84145; 84484; 85025; 85027; 85520; 85610; 85730; 87040; 87086; 93005; 93010; 94640; 94664; 94760; 96365-59; 96375-59; 97110; 97162; 97165; 97530; 99285-25; A9270; J0456; J0696; J1650; J2405; J2543; J3370; J7030; J7050; Q9967

== ENCOUNTER 2022-09-16 11:35 | Inpatient (IN) | payer OTHER ==
[~2022-09-16] VITALS: Ht 185.4 cm; Wt 100.5 kg
[~2022-09-16 11:35] MED LIST changes: +ACET325 PO; +BENZ100A PO; +EUTHYROX50 MCG PO; +LEVFLO500 PO; +PROM25 PO; +VISBIOME 112.51 EACH PO; +XARELTO20 MG PO
[2022-09-16 12:18] LABS: BASOPHILS ABSOLUTE AUTO 0.11 K/mm3 (0.00-0.23); BASOPHILS PERCENT AUTO 1 % (0-2); EOSINOPHILS ABSOLUTE AUTO 0.14 K/mm3 (0.00-0.68); EOSINOPHILS PERCENT AUTO 1 % (0-6); Hematocrit 38.3 % (37.0-53.0); Hemoglobin 11.8 g/dL (13.5-17.5); IMMATURE GRAN ABSOLUTE AUTO 0.05 K/mm3 (0.00-0.10); IMMATURE GRAN PERCENT AUTO 1 % (0-1); LYMPHOCYTES ABSOLUTE AUTO 1.45 K/mm3 (0.84-5.20); LYMPHOCYTES PERCENT AUTO 15 % (21-46); MONOCYTES ABSOLUTE AUTO 0.76 K/mm3 (0.16-1.47); MONOCYTES PERCENT AUTO 8 % (4-13); Mean Corpuscular HGB 25.7 pg (26.0-34.0); Mean Corpuscular HGB Conc 30.8 g/dL (31.5-36.5); Mean Corpuscular Volume 83 fL (80-100); Mean Platelet Volume 9.7 fL (9.1-12.4); NEUTROPHILS ABSOLUTE AUTO 7.51 K/mm3 (1.96-9.15); NEUTROPHILS PERCENT AUTO 75 % (41-73); Platelet Count 545 K/mm3 (150-400); RDW Coefficient Variation 17.3 % (11.7-14.2); RDW Standard Deviation 52.1 fL (35.1-46.3); White Blood Cell Count 10.02 K/mm3 (4.00-11.30)
[2022-09-16 12:35] LABS: Albumin, Blood 1.8 g/dL (3.4-5.0); Albumin/Globulin Ratio 0.3 (0.8-1.8); Bilirubin, Total 0.7 mg/dL (0.1-1.0); Bun/Creatinine Ratio 18.8 (12.0-20.0); Creatinine, Blood 1.12 mg/dL (0.60-1.20); Globulin, Blood 6.1 g/dL (2.2-4.0); Potassium, Blood 4.9 mmol/L (3.5-5.5); Total Protein, Blood 7.9 g/dL (6.4-8.2)
[2022-09-16 13:28] LABS: Influenza A, PCR NEGATIVE (NEGATIVE); Influenza B, PCR NEGATIVE (NEGATIVE); Resp Syncytial Virus, PCR NEGATIVE (NEGATIVE); SARS-Cov-2 (COVID-19) PCR, MMC NEGATIVE (NEGATIVE)
[2022-09-16 14:34] LABS: Source, Urine Clean Catch
[2022-09-16 14:43] LABS: Appearance, Urine Hazy (Clear); Blood, Urine Neg (Neg); Color, Urine Amber (P-Yellow); Glucose Qualitative, Urine Neg (Neg); Ketones, Urine 2+ (Neg); Leukocyte Esterase, Urine 1+ (Neg); Nitrite, Urine Neg (Neg); Protein, Urine 2+ (Neg); Urobilinogen, Urine NORM (Normal)
[2022-09-16 14:45] LABS: Bilirubin, Urine 1+ (Neg)
[2022-09-16 14:54] LABS: Amorphous Light (0-Heavy); Bacteria Mod /hpf
[2022-09-16 14:55] LABS: Mucus Mod (0-Heavy); Red Blood Cells, Urine 0-2 /hpf (0-2); Squamous Epithelial Cells Rare /hpf (Few)
[2022-09-16 15:43] LABS: International Normalized Ratio 2.01; Prothrombin Time Results 20.2 Sec (9.7-11.5)
--- NOTE | 2022-09-16 18:15 | NUR ---
8305 RECEIVED PT TO RM 326 VIA [facility]AGROS FROM ER. PT IS A&O, PLEASANT AND CO-OP. ABLE TO TX SELF TO BED WITH SBA. PT IS WEAK. ADMITTED FOR WEAKNESS, N/V R/T SEPSIS/PNM. 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 PT UNABLE TO HOLD DOWN FOOD OR FLUIDS. IVF'S AND IV ABX GIVEN IN ER; ADDITIONAL IVF'S AND ABX INFUSING AT THIS TIME. PULMONOLOGY CONSULT TO BE CALLED IN AM, PER ORDERS. CHEST CT SHOWING POSSIBLE ABSCESS/EMPYEMA IN RLL. PER REPORT FROM NADIRA ATKINS, PT WITH RECENT ADMIT A COUPLE OF WEEKS AGO FOR PNM AND P/E; SENT HOME ON XARELTO. P/E RESOLVED, BUT PNM REMAINS. PT REQUESTED ICE, JELLO, AND YOGURT AFTER ADMISSION. ONLY EATING A FEW BITES OF JELLO. PT RESTING QUIETLY AT THIS. NO C/O. CALL LT IN REACH.
[2022-09-17 04:49] LABS: BASOPHILS ABSOLUTE AUTO 0.07 K/mm3 (0.00-0.23); BASOPHILS PERCENT AUTO 1 % (0-2); EOSINOPHILS ABSOLUTE AUTO 0.23 K/mm3 (0.00-0.68); EOSINOPHILS PERCENT AUTO 3 % (0-6); Hematocrit 29.6 % (37.0-53.0); IMMATURE GRAN ABSOLUTE AUTO 0.05 K/mm3 (0.00-0.10); IMMATURE GRAN PERCENT AUTO 1 % (0-1); LYMPHOCYTES ABSOLUTE AUTO 1.16 K/mm3 (0.84-5.20); LYMPHOCYTES PERCENT AUTO 13 % (21-46); MONOCYTES ABSOLUTE AUTO 0.74 K/mm3 (0.16-1.47); MONOCYTES PERCENT AUTO 8 % (4-13); Mean Corpuscular HGB 25.6 pg (26.0-34.0); Mean Corpuscular HGB Conc 30.4 g/dL (31.5-36.5); Mean Corpuscular Volume 84 fL (80-100); Mean Platelet Volume 8.7 fL (9.1-12.4); NEUTROPHILS ABSOLUTE AUTO 6.66 K/mm3 (1.96-9.15); NEUTROPHILS PERCENT AUTO 75 % (41-73); Platelet Count 400 K/mm3 (150-400); RDW Coefficient Variation 17.2 % (11.7-14.2); RDW Standard Deviation 53.3 fL (35.1-46.3); Red Blood Cell Count 3.51 M/mm3 (4.30-5.90); White Blood Cell Count 8.91 K/mm3 (4.00-11.30)
[2022-09-17 05:04] LABS: Anti-Xa UFH, PHA Monitoring 0.15 IU/mL; International Normalized Ratio 1.61; Prothrombin Time Results 16.4 Sec (9.7-11.5)
[2022-09-17 05:20] LABS: Albumin, Blood 1.5 g/dL (3.4-5.0); Albumin/Globulin Ratio 0.3 (0.8-1.8); Bilirubin, Total 0.7 mg/dL (0.1-1.0); Bun/Creatinine Ratio 14.6 (12.0-20.0); Calcium, Blood 7.9 mg/dL (8.5-10.1); Creatinine, Blood 1.23 mg/dL (0.60-1.20); Globulin, Blood 4.8 g/dL (2.2-4.0); Potassium, Blood 3.9 mmol/L (3.5-5.5); Total Protein, Blood 6.3 g/dL (6.4-8.2)
--- NOTE | 2022-09-17 05:46 | NUR ---
Patient slept well overnight. No desats noted. Lung sounds diminished. X1 fever noted overnight. Voiding suzan colored urine. Tolerating P.O fluids. Denies nausea, no emesis noted.
--- NOTE | 2022-09-17 06:05 | NUR ---
09/16/22 at 2200, pharmacy was called and inquired about Heparin drip. discussed with day shift pharmacist about making a decision in AM regarding initiating a Heparin drip as per Kan (military technology specialist).
[2022-09-17 13:14] LABS: Hematocrit 30.7 % (37.0-53.0); Hemoglobin 9.3 g/dL (13.5-17.5)
--- NOTE | 2022-09-17 15:42 | NUR ---
SHIFT SUMMARY PT RESTING QUIETLY AT START OF SHIFT, IVF'S INFUSING PER EMAR. PT WOKE EASILY FOR CARE. ABLE TO EAT SOME OF BREAKFAST. DIETARY REVIEWED MENU WITH PT FOR REMAINING MEALS. PT ATE ABOUT HALF OF LUNCH AND THEN A COUPLE OF HOURS LATER BEGAN VOMITING. ZOFRAN GIVEN PER EMAR WITH GOOD EFFECT. DR GARLAND AND DR BIRD BOTH IN TO SEE PT THIS AM; PT INFORMED OF PULMONOLOGY CONSULT. PT'S MOM IN TO VISIT THIS AFTERNOON, BRINGING CLEAN CLOTHES WELL. DR STAFFORD CALLED TO INFORM PT THAT HE HAD REVIEWED HIS CHART AND WOULD BE UP TO SEE HIM AND DISCUSS PLAN OF CARE. DR STAFFORD DID COME UP AND SPENT A GREAT DEAL OF TIME WITH PT. DR STAFFORD TO PLACE NEW ORDERS. PT TO BE ABLE TO D/C ON PO ABX'S WHEN N/V IMPROVED. PT SET UP FOR SHOWER WHEN RESTED AND ABLE TO GET UP. DENIED FURTHER NEEDS. CALL LT IN REACH.
[2022-09-17 16:10] LABS: Vancomycin, Trough 23.1 ug/mL (5.0-10.0)
[2022-09-18 05:26] LABS: Hematocrit 29.6 % (37.0-53.0)
--- NOTE | 2022-09-18 05:31 | NUR ---
TIFFANY SLEPT OFF AND ON OVERNIGHT WATCHING TV A GREAT DEAL OF THE TIME. EARLY IN THE EVENING THE MULTIMEDIA ASSISTANT RECORDED A TEMPORAL TEMP OF 102.0F. COVERS WERE REMOVED AND SWEATSUIT JACKET WAS OPENED AND THERMOSTAT WAS TURNED DOWN, AND ORAL TEMP 10 MINUTES WAS 100.9. NO FURTHER TEMP OVERNIGHT. READING BETWEEN 0330 & 0400 WAS 99.0. AWAITING LABWORK AT THIS TIME. PATIENT IS A&OX4, HAD NO COMPLAINTS OF PAIN OR DISCOMFORT, AND IS TOLERATING HIS IV ANTIBIOTICS WITHOUT DIFFICULTY
[2022-09-18 05:48] LABS: Albumin, Blood 1.5 g/dL (3.4-5.0); Anion Gap 5 mmol/L (6-16); Blood Urea Nitrogen 16 mg/dL (8-24); Bun/Creatinine Ratio 13.9 (12.0-20.0); CO2, Blood 22 mmol/L (21-32); Chloride, Blood 113 mmol/L (98-108); Creatinine, Blood 1.15 mg/dL (0.60-1.20); Glomerular Filtration Rate 70 (60-); Glucose, Blood 79 mg/dL (70-99); Potassium, Blood 3.7 mmol/L (3.5-5.5); Sodium, Blood 140 mmol/L (136-145)
--- NOTE | 2022-09-18 17:38 | NUR ---
SHIFT SUMMARY PT RESTING QUIETLY AT START OF SHIFT, BECOMING IRRITABLE AT BEING WOKE UP BY STAFF. PT CONTINUES TO RECEIVE IV ABX FOR PNM/INFECTION. SPUTUM CX'S ORDERED AND SENT THRU OUT THE DAY, PER DR STAFFORD. PULMONOLOGY ATTEMPTING TO NARROW DOWN CAUSE OF INFECTION FOR APPROPRIATE ABX AT D/C. DR GARLAND IN TO SEE PT EARLY TO DISCUSS PLAN OF CARE. DR GARLAND AND DR STONE UPDATED ON PT'S N/V EPISODES. MEDICATIONS ADJUSTED AGAIN TODAY. PT ABLE TO TOLERATE SOME FOOD AND ENSURE, BUT DOES VOMIT IN-BETWEEN MEALS WELL WHEN UP TO SHOWER THIS AFTERNOON. PT'S IN TO VISIT THIS AFTERNOON AND ASSISTED PT WITH ADDITIONAL SHOWER NEEDS. BED LINENS CHANGED WELL WHILE IN SHOWER. PT ALSO REPORTED SEVERAL BM'S WHEN UP TO SHOWER. PT RESTING QUIETLY AT THIS TIME. DENIED FURTHER NEEDS. CALL LT IN REACH.
[2022-09-19 05:42] LABS: BASOPHILS ABSOLUTE AUTO 0.05 K/mm3 (0.00-0.23); BASOPHILS PERCENT AUTO 1 % (0-2); EOSINOPHILS ABSOLUTE AUTO 0.29 K/mm3 (0.00-0.68); EOSINOPHILS PERCENT AUTO 5 % (0-6); Hematocrit 28.3 % (37.0-53.0); Hemoglobin 8.7 g/dL (13.5-17.5); IMMATURE GRAN ABSOLUTE AUTO 0.04 K/mm3 (0.00-0.10); IMMATURE GRAN PERCENT AUTO 1 % (0-1); LYMPHOCYTES ABSOLUTE AUTO 1.14 K/mm3 (0.84-5.20); LYMPHOCYTES PERCENT AUTO 20 % (21-46); MONOCYTES ABSOLUTE AUTO 0.53 K/mm3 (0.16-1.47); MONOCYTES PERCENT AUTO 10 % (4-13); Mean Corpuscular HGB 25.7 pg (26.0-34.0); Mean Corpuscular HGB Conc 30.7 g/dL (31.5-36.5); Mean Corpuscular Volume 84 fL (80-100); Mean Platelet Volume 8.8 fL (9.1-12.4); NEUTROPHILS ABSOLUTE AUTO 3.54 K/mm3 (1.96-9.15); NEUTROPHILS PERCENT AUTO 63 % (41-73); Platelet Count 400 K/mm3 (150-400); RDW Coefficient Variation 17.2 % (11.7-14.2); RDW Standard Deviation 53.1 fL (35.1-46.3); Red Blood Cell Count 3.39 M/mm3 (4.30-5.90); White Blood Cell Count 5.59 K/mm3 (4.00-11.30)
--- NOTE | 2022-09-19 05:51 | NUR ---
SHIFT SUMMARY 67 YR M ADMITTED ON 09/16/22 FOR SEPSIS/ABCSESS IN LOWER RIGHT LOBE. FULL CODE. NO ACUTE CHANGES THIS SHIFT. PT WAS ABLE TO TOLERATE ICE CHIPS THIS SHIFT AND DID NOT HAVE ANY VOMITING EPISODES. HE HAS SLEPT FOR MOT OF THE SHIFT AND USES HIS URINAL INDEPENDANTLY. HIS URINE IS A DARK ORANGE COLOR.
[2022-09-19 05:53] LABS: Albumin, Blood 1.4 g/dL (3.4-5.0); Anion Gap 5 mmol/L (6-16); Blood Urea Nitrogen 13 mg/dL (8-24); Bun/Creatinine Ratio 12.9 (12.0-20.0); CO2, Blood 22 mmol/L (21-32); Calcium, Blood 7.9 mg/dL (8.5-10.1); Chloride, Blood 113 mmol/L (98-108); Creatinine, Blood 1.01 mg/dL (0.60-1.20); Glomerular Filtration Rate 82 (60-); Glucose, Blood 102 mg/dL (70-99); Phosphorus, Blood 1.8 mg/dL (2.5-4.9); Potassium, Blood 3.4 mmol/L (3.5-5.5); Sodium, Blood 140 mmol/L (136-145)
[2022-09-19] MEDS ORDERED: ONDA4ODT MM (13:20)
[2022-09-19] MEDS ORDERED: AMOCLA875 PO (13:21)
--- NOTE | 2022-09-19 16:12 | NUR ---
Patient doing well today, denied N/V during the night, tolerated breakfast, but had 1 episode of emesis after lunch. PO Zofran & Phenergan given, PRNs effective. Pt stable for discharge. Removed IV, provided education on DC meds, pt verbalized understanding. Pt left medical unit at 1605.
== END 2022-09-19 16:00 | disposition home or self-care (01) | DRG 871 ==
LOC: ER 11:35 → MEDS 14:57
PROVIDERS: Emergency Medicine; Family Medicine; Family Medicine Adult Medicine; Student in an Organized Health Care Education/Training Program; ADMIT Hospitalist
DX: A41.9 Sepsis, unspecified organism (principal); I26.99 Other pulmonary embolism without acute cor pulmonale; J85.1 Abscess of lung with pneumonia; J85.0 Gangrene and necrosis of lung; C18.1 Malignant neoplasm of appendix; J90 Pleural effusion, not elsewhere classified; D64.9 Anemia, unspecified; J45.909 Unspecified asthma, uncomplicated; R82.71 Bacteriuria; N40.0 Benign prostatic hyperplasia without lower urinary tract symptoms; I25.10 Atherosclerotic heart disease of native coronary artery without angina pectoris; I10 Essential (primary) hypertension; E78.5 Hyperlipidemia, unspecified; E03.9 Hypothyroidism, unspecified; R91.1 Solitary pulmonary nodule; K21.9 Gastro-esophageal reflux disease without esophagitis; Z20.822 Contact with and (suspected) exposure to COVID-19; B96.89 Other specified bacterial agents as the cause of diseases classified elsewhere; Z96.652 Presence of left artificial knee joint; Z96.653 Presence of artificial knee joint, bilateral; Z79.51 Long term (current) use of inhaled steroids; Z79.2 Long term (current) use of antibiotics; Z79.01 Long term (current) use of anticoagulants; Z79.02 Long term (current) use of antithrombotics/antiplatelets; Z79.811 Long term (current) use of aromatase inhibitors; Z95.5 Presence of coronary angioplasty implant and graft; Z79.899 Other long term (current) drug therapy; Z85.46 Personal history of malignant neoplasm of prostate; Z87.891 Personal history of nicotine dependence; Z98.890 Other specified postprocedural states; Z90.49 Acquired absence of other specified parts of digestive tract; Z95.828 Presence of other vascular implants and grafts; Z92.21 Personal history of antineoplastic chemotherapy
CPT/HCPCS: 0241U; 36415; 71046; 71260; 80053; 80069; 80202; 81001; 83605; 85014; 85018; 85025; 85520; 85610; 85730; 87040; 87070; 87086; 87205; 93005; 93010; 94640; 94664; 94760; 96365-59; 96375-59; 99285-25; A9270; J0295; J0780; J1650; J2405; J2543; J2765; J3370; J7030; J7050; Q9967